=== PATIENT | female | born 1950 | race Asian ===

== ENCOUNTER → 2018-10-25 | Outpatient (CLI) | payer MEDICARE ==
[~2018-10-25] MED LIST: AMLO10TA6 PO; AMOX-291 PO; ASCO-96 PO; ASPI-496 PO; ATOR10TA9 PO; CALC1CAP8 PO; CANA100T PO; CHOL100012 PO; CLAR500T3 PO; FENO160T PO; FLUT16SP NS; HYDROCHLOROTH12.5 MG PO; LANS15CA60 PO; MULT-658 PO; OMEG500C3 PO; OMEP40CA6 PO; POTA10CA PO; SIME180C4 PO; VIT1TABL32 PO
== END | disposition home or self-care (01) ==
LOC: CFH 11:22
PROVIDERS: ATTEND Nurse Practitioner
DX: Z12.31 Encounter for screening mammogram for malignant neoplasm of breast (principal)
CPT/HCPCS: 77063; 77067

== ENCOUNTER → 2018-10-29 | Outpatient (CLI) | payer MEDICARE | END | disposition home or self-care (01) | LOC: CFH 10:51 | PROVIDERS: ATTEND Nurse Practitioner | DX: Z13.820 Encounter for screening for osteoporosis (principal); N95.8 Other specified menopausal and perimenopausal disorders | CPT/HCPCS: 77080 ==

== ENCOUNTER 2019-11-14 10:43 | Outpatient (CLI) | payer MEDICARE ==
[~2019-11-14 10:43] MED LIST changes: -AMLO10TA6 PO; +AMLO10TA8 PO; -FLUT16SP NS; +FLUT16SP24 NS; +OMEP40CA42 PO; -OMEP40CA6 PO
== END 2019-11-14 23:59 | disposition home or self-care (01) ==
LOC: CFH 10:43
PROVIDERS: ATTEND Nurse Practitioner
DX: Z12.31 Encounter for screening mammogram for malignant neoplasm of breast (principal)
CPT/HCPCS: 77063; 77067

== ENCOUNTER → 2020-06-28 | Outpatient (CLI) | payer MEDICARE ==
[~2020-06-28] MED LIST changes: +OMNIPAQUE 350 MG/ML, 100ML BOTTLE ONE
== END | disposition home or self-care (01) ==
LOC: CFH 11:53
PROVIDERS: ATTEND Family Medicine
DX: K76.0 Fatty (change of) liver, not elsewhere classified (principal); K76.89 Other specified diseases of liver; M51.36 Other intervertebral disc degeneration, lumbar region
CPT/HCPCS: 74177; Q9967

== ENCOUNTER → 2020-11-19 | Outpatient (CLI) | payer MEDICARE ==
[~2020-11-19] MED LIST changes: +AMLO-211 PO; -AMLO10TA8 PO; -OMNIPAQUE 350 MG/ML, 100ML BOTTLE ONE
== END | disposition home or self-care (01) ==
LOC: CFH 10:53
PROVIDERS: ATTEND Nurse Practitioner
DX: Z13.820 Encounter for screening for osteoporosis (principal); N95.8 Other specified menopausal and perimenopausal disorders; M85.80 Other specified disorders of bone density and structure, unspecified site
CPT/HCPCS: 77080

== ENCOUNTER → 2020-11-26 | Outpatient (CLI) | payer MEDICARE | END | disposition home or self-care (01) | LOC: CFH 07:38 | PROVIDERS: ATTEND Family Medicine | DX: N63.22 Unspecified lump in the left breast, upper inner quadrant (principal) | CPT/HCPCS: 76642; 77062; 77066; G0279 ==